=== PATIENT | male | born 1960 | race Caucasian/White ===

== ENCOUNTER 2017-09-03 17:29 | Emergency (ER) | payer OTHER | END 2017-09-03 18:47 | disposition home or self-care (01) | LOC: M ED 17:29 | DX: T18.5XXA Foreign body in anus and rectum, initial encounter (principal); Y92.9 Unspecified place or not applicable; Y93.89 Activity, other specified; I10 Essential (primary) hypertension; Z87.442 Personal history of urinary calculi; Z79.899 Other long term (current) drug therapy | CPT/HCPCS: 74018 ==

== ENCOUNTER → 2024-03-31 | Outpatient (CLI) | payer MEDICARE, BC ==
[~2024-03-31] MED LIST: ALFU10TA23 PO; ISOVUE-370 76% 100ML VIAL As Ordered ONE; LOSA100T46 PO; VITA2000 PO; [UNRECOGNIZED DRUG - OTHER] PO
== END ==
LOC: M RAD 15:00
PROVIDERS: ATTEND Urology
DX: N32.89 Other specified disorders of bladder (principal); K57.30 Diverticulosis of large intestine without perforation or abscess without bleeding; N40.0 Benign prostatic hyperplasia without lower urinary tract symptoms
CPT/HCPCS: 72193; Q9967

== ENCOUNTER → 2024-06-05 | Outpatient (CLI) | payer MEDICARE, BC ==
[~2024-06-05] MED LIST changes: -ISOVUE-370 76% 100ML VIAL As Ordered ONE
== END ==
LOC: M PLALAB 09:42
PROVIDERS: ATTEND Urology
DX: R97.20 Elevated prostate specific antigen [PSA] (principal)